=== PATIENT | male | born 1960 | race Caucasian/White ===

== ENCOUNTER 2019-04-16 20:24 | Emergency (ER) | payer MEDICARE, MEDICAID ==
[~2019-04-16] VITALS: Ht 180.3 cm; Wt 81.8 kg
[2019-04-16 20:39] VITALS: BP 127/87
== END 2019-04-16 21:33 | disposition home or self-care (01) ==
LOC: ER 20:24
DX: F15.10 Other stimulant abuse, uncomplicated (principal); E11.9 Type 2 diabetes mellitus without complications; Z87.820 Personal history of traumatic brain injury; Z87.891 Personal history of nicotine dependence; Z88.5 Allergy status to narcotic agent
CPT/HCPCS: 99281

== ENCOUNTER 2020-04-15 18:06 | Emergency (ER) | payer MEDICARE, MEDICAID ==
[~2020-04-15] VITALS: Ht 177.8 cm; Wt 75.0 kg
[2020-04-15 18:15] VITALS: BP 130/81
[2020-04-15] MEDS ORDERED: bacitracin 15gm ointment TP ONE (19:10)
== END 2020-04-15 19:45 | disposition home or self-care (01) ==
LOC: ER 18:06
DX: S61.213A Laceration without foreign body of left middle finger without damage to nail, initial encounter (principal); E11.9 Type 2 diabetes mellitus without complications; F32.9 Major depressive disorder, single episode, unspecified; F15.90 Other stimulant use, unspecified, uncomplicated; Z86.19 Personal history of other infectious and parasitic diseases; Z88.5 Allergy status to narcotic agent; W45.8XXA Other foreign body or object entering through skin, initial encounter; Y93.89 Activity, other specified; Y92.89 Other specified places as the place of occurrence of the external cause; Y99.8 Other external cause status
CPT/HCPCS: 12001; 99282

== ENCOUNTER 2022-11-05 22:35 | Emergency (ER) | payer MEDICARE, MEDICAID ==
[~2022-11-05] VITALS: Ht 175.3 cm; Wt 78.6 kg
[2022-11-05 23:21] LABS: MEAN PLATELET VOLUME 7.9 FL (7.4-10.4); MONOCYTES # (AUTO) 0.7 X10'3 (0-0.9); NEUTROPHILS # (AUTO) 7.9 X10'3 (1.8-7.7); RED CELL DISTRIBUTION WIDTH 14.7 % (11.5-14.5); WHITE BLOOD COUNT 10.7 X10'3 (4.5-11.0)
[2022-11-05 23:23] LABS: BASOPHILS % (AUTO) 0.3 % (0-1); EOSINOPHILS % (AUTO) 0.5 % (0-6); HEMATOCRIT 50.1 % (42.0-52.0); HEMOGLOBIN 17.4 g/dl (14.0-17.9); MEAN CORPUSCULAR HEMOGLOBIN 29.5 PG (27.0-31.0); MEAN CORPUSCULAR HGB CONC 34.7 g/dL (33.0-36.5); MEAN CORPUSCULAR VOLUME 85.1 FL (78-98); MONOCYTES % (AUTO) 6.5 % (2-12); NEUTROPHILS % (AUTO) 73.7 % (42-75); PLATELET COUNT 269 X10'3 (140-440); RED BLOOD COUNT 5.89 X10'6 (4.70-6.10)
[2022-11-05 23:40] LABS: ALANINE AMINOTRANSFERASE 21 U/L (12-78); ALBUMIN 4.2 G/DL (3.4-5.0); ALBUMIN/GLOBULIN RATIO 0.9 (1.1-1.5); ALKALINE PHOSPHATASE 128 IU/L (46-116); ANION GAP 11 (8-16); ASPARTATE AMINO TRANSFERASE 13 U/L (10-37); BILIRUBIN,TOTAL 0.5 MG/DL (0.1-1.0); BLOOD UREA NITROGEN 15 MG/DL (7-18); CALCIUM 10.4 MG/DL (8.5-10.1); CHLORIDE 100 MMOL/L (99-107); CREATININE 0.94 MG/DL (0.60-1.10); GLUCOSE 186 MG/DL (70-104); POTASSIUM 4.2 MMOL/L (3.5-5.1); SODIUM 139 MMOL/L (135-145); TOTAL CARBON DIOXIDE 27.8 MMOL/L (24-32); TOTAL PROTEIN 8.8 G/DL (6.4-8.2); eGFR 82 ML/MIN
[2022-11-05 23:44] LABS: LIPASE 62 U/L (73-393)
[2022-11-06] MEDS ORDERED: ondansetron/PF 4mg/2ml inj IV ONE (00:10)
[2022-11-06] MEDS ORDERED: normal saline 1000ML IV soln IVB ONE (00:10)
[2022-11-06] MEDS ORDERED: iohexol 300mg/ml 100ml inj. ONE (00:13)
[2022-11-06 03:24] VITALS: BP 135/82
[2022-11-06 09:45] LABS: C DIFF SPECIMEN=DIARRHEA? ACCEPTABLE; C DIFFICILE TOXINS A&B NEGATIVE (Neg)
== END 2022-11-06 03:26 | disposition home or self-care (01) ==
LOC: ER 22:38
DX: R19.7 Diarrhea, unspecified (principal); Z20.822 Contact with and (suspected) exposure to COVID-19; K59.00 Constipation, unspecified; R50.9 Fever, unspecified; E11.9 Type 2 diabetes mellitus without complications; G89.29 Other chronic pain; M54.50 Low back pain, unspecified; F17.200 Nicotine dependence, unspecified, uncomplicated; F15.20 Other stimulant dependence, uncomplicated; Z88.5 Allergy status to narcotic agent
CPT/HCPCS: 36415; 71045; 74177; 80053; 83605; 83690; 83880; 84145; 84484; 85025; 87040; 87324; 87449; 87502; 87503; 87635; 93005; 96361; 96374; 99285; C9803; J2405; J3490; J7030; Q9967

== ENCOUNTER 2023-02-13 20:57 | Emergency (ER) | payer MEDICARE, MEDICAID ==
[~2023-02-13] VITALS: Ht 177.8 cm; Wt 86.3 kg
[2023-02-13 21:21] LABS: BASOPHILS % (AUTO) 0.6 % (0-1); EOSINOPHILS # (AUTO) 0.2 X10'3 (0-0.9); EOSINOPHILS % (AUTO) 2.2 % (0-6); HEMATOCRIT 42.4 % (42.0-52.0); HEMOGLOBIN 14.2 g/dl (14.0-17.9); LYMPHOCYTES # (AUTO) 3.5 X10'3 (1.1-4.8); LYMPHOCYTES % (AUTO) 41.9 % (21-51); MEAN CORPUSCULAR HEMOGLOBIN 28.7 PG (27.0-31.0); MEAN CORPUSCULAR HGB CONC 33.6 g/dL (33.0-36.5); MEAN CORPUSCULAR VOLUME 85.4 FL (78-98); MEAN PLATELET VOLUME 7.8 FL (7.4-10.4); MONOCYTES # (AUTO) 0.5 X10'3 (0-0.9); NEUTROPHILS # (AUTO) 4.1 X10'3 (1.8-7.7); NEUTROPHILS % (AUTO) 49.3 % (42-75); PLATELET COUNT 239 X10'3 (140-440); RED BLOOD COUNT 4.96 X10'6 (4.70-6.10); RED CELL DISTRIBUTION WIDTH 14.3 % (11.5-14.5); WHITE BLOOD COUNT 8.4 X10'3 (4.5-11.0)
[2023-02-13 21:31] LABS: ALANINE AMINOTRANSFERASE 32 U/L (12-78); ALBUMIN 3.7 G/DL (3.4-5.0); ALKALINE PHOSPHATASE 97 IU/L (46-116); ANION GAP 12 (8-16); ASPARTATE AMINO TRANSFERASE 14 U/L (10-37); BILIRUBIN,TOTAL 0.3 MG/DL (0.1-1.0); BLOOD UREA NITROGEN 11 MG/DL (7-18); BUN/CREATININE RATIO 12.1 (10.0-20.0); CHLORIDE 101 MMOL/L (99-107); CREATININE 0.91 MG/DL (0.60-1.10); GLUCOSE 207 MG/DL (70-104); POTASSIUM 3.8 MMOL/L (3.5-5.1); SODIUM 135 MMOL/L (135-145); TOTAL CARBON DIOXIDE 21.9 MMOL/L (24-32); TOTAL PROTEIN 7.3 G/DL (6.4-8.2); eGFR 84 ML/MIN
[2023-02-14] MEDS ORDERED: furosemide 10 MG/1 ML 10ml inj IV ONE (00:05)
[2023-02-14 00:59] LABS: D-DIMER 0.48 MG/L FEU (0-0.50)
[2023-02-14 01:14] VITALS: BP 144/98
== END 2023-02-14 01:16 | disposition home or self-care (01) ==
LOC: ER 20:58
DX: R06.02 Shortness of breath (principal); R60.0 Localized edema; G89.29 Other chronic pain; M54.9 Dorsalgia, unspecified; Z88.5 Allergy status to narcotic agent
CPT/HCPCS: 36415; 71046; 80053; 83880; 84484; 85025; 85379; 93005; 96374; 99285; J1940

== ENCOUNTER 2025-04-11 20:16 | Emergency (ER) | payer BC, MEDICAID ==
[~2025-04-11] VITALS: Ht 175.3 cm; Wt 65.5 kg
--- NOTE | 2025-04-11 20:43 | Physician Documentation ---
History of Present Illness General Chief Complaint: See Chief Complaint Stated Complaint: METH OVERDOSE Time Seen by MD: 20:43 Primary Medical Doctor: Mireya History of Present Illness Initial Comments Patient is a 64-year-old male who presents to the emergency room with a complaint of agitation. Patient states that he smoked meth all day today and he states he can not calm down. He denies any chest pain. He does complain of some slight shortness of breath. The patient states he frequently smokes methamphetamine. He denies any significant cardiac history. The patient denies any other coingestion. Patient denies any recent fevers chills nausea or vomiting. Patient's symptoms were moderate and persistent. 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 GENERAL: Alert, no apparent distress. HEENT: Normocephalic, atraumatic, PERRL, EOMI, dry mucosa, no erythema RESPIRATORY: Lungs clear, normal breath sounds, no respiratory distress. CHEST: No accessory muscle use, no retractions CV: Tachycardic rate, rhythm, no edema, no murmur, No: JVD GI: Soft, non-tender, bowels sounds present, no rebound, guarding, or rigidity BACK: No CVA tenderness, or swelling MUSCULOSKELETAL: No deformities, no edema SKIN: Warm and dry, no rash NEURO: Oriented x4, No motor or sensory deficit PSYCH: Normal mood and affect, no agitation Progress Results/Orders Results/Orders Orders - OHKELLY NAGY MD Chest,Single View (04/11/25 20:56) Monitor (04/11/25 20:49) Saline Lock (04/11/25 20:49) Oxygen (04/11/25 20:49) Hs Troponin I W Calculations (04/11/25 22:49) Hs Troponin I W Calculations (04/11/25 23:49) Completed Orders - KELLY KIM MD Chest,Single View (04/11/25 20:56) Cbc/Diff (04/11/25 20:49) BMP (04/11/25 20:49) PBNP (04/11/25 20:49) Electrocardiogram (04/11/25 20:49) Hs Troponin I W Calculations (04/11/25 20:49) Lorazepam Tablet (Ativan Tablet) (04/11/25 20:50) Clonidine Tablet (Catapres Tablet) (04/11/25 20:50) Medications Received in ER Medications (Trade) Dose Ordered Sig/Anupama Route PRN Reason Start Time Stop Time Status Last Admin Dose Admin (Ativan tablet) 1 mg ONCE ONCE PO 04/11/25 20:50 04/11/25 20:51 DC 04/11/25 21:51 1 MG (Catapres tablet) 0.1 mg ONCE ONCE PO 04/11/25 20:50 04/11/25 20:51 DC 04/11/25 21:51 0.1 MG Vital Signs 04/11/25 04/11/25 04/11/25 20:41 21:19 21:20 Temp 97.9 97.9 Pulse 108 99 Resp 20 16 12 B/P (MAP) 144/100 131/36 (67) Pulse Ox 95 94 O2 Flow Rate 0 0 Laboratory Tests Test 04/11/25 21:03 White Blood Count 8.0 Red Blood Count 4.66 L Hemoglobin 13.6 L Hematocrit 39.6 L Mean Corpuscular Volume 84.9 Mean Corpuscular Hemoglobin 29.3 Mean Corpuscular Hemoglobin Concent 34.4 Red Cell Distribution Width 13.5 Platelet Count 218 Mean Platelet Volume 7.7 Neutrophils (%) (Auto) 63.7 Lymphocytes (%) (Auto) 28.1 Monocytes (%) (Auto) 4.5 Eosinophils (%) (Auto) 2.6 Basophils (%) (Auto) 1.1 H Neutrophils # (Auto) 5.1 Lymphocytes # (Auto) 2.3 Monocytes # (Auto) 0.4 Eosinophils # (Auto) 0.2 Basophils # (Auto) 0.1 CBC Comment Sodium Level 137 Potassium Level 3.7 Chloride Level 104 Carbon Dioxide Level 21.1 L Anion Gap 12 Blood Urea Nitrogen 17 Creatinine 0.97 Estimated GFR/1.73 m2 78 BUN/Creatinine Ratio 17.5 Glucose Level 191 H Calcium Level 8.7 Troponin I High Sensitivity 8 Pro-B-Type Natriuretic Peptide 351 H Albumin 3.5 Chemistry Comments EKG/XRAY/CT/US/VASC/MRI Chest X-Ray : Additional Comments Patient: JOSEPH CARABALLO Medical Record: [id number] [facility] : 1960, Age: 64 Sex: Male Location: ER Patient Status: [facility] ER Service Date/Time: 04/11/252055 Ordering Physician: KELLY KIM MD Exam: CHEST,SINGLE VIEW CHEST RADIOGRAPH Indication: CP Technique: 1 view Comparison: 02/13/2023 FINDINGS: Lines and Tubes: None Lungs/Pleura: No focal consolidation, pleural effusion or pneumothorax. Mild scarring/atelectasis in the right lung base. Cardiomediastinum: Unremarkable. Other: No acute osseous abnormality. IMPRESSION: 1. No acute cardiopulmonary abnormality. Electronically Signed by:KATHY CASTILLO MD Date & Time: 04/11/252105 Dictated by: KATHY CASTILLO MD Dictation date and time: 04/11/252105 Primary Care Provider: NO PRIMARY CARE PROVIDER cc: KELLY KIM MD ~ Departure Disposition: 01 HOME / SELF CARE / HOMELESS Impression: Primary Impression: Methamphetamine abuse Discharge Instructions: Methamphetamines Use Disorder Referrals: NO PRIMARY CARE PROVIDER (PCP) KELLY KIM MD Apr 11, 2025 20:43
--- NOTE | 2025-04-11 20:51 | ELECTROCARDIOGRAPH REPORT ---
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
--- NOTE | 2025-04-11 21:08 | RADIOLOGY REPORT ---
CHEST RADIOGRAPH Indication: CP Technique: 1 view Comparison: 02/13/2023 FINDINGS: Lines and Tubes: None Lungs/Pleura: No focal consolidation, pleural effusion or pneumothorax. Mild scarring/atelectasis in the right lung base. Cardiomediastinum: Unremarkable. Other: No acute osseous abnormality. IMPRESSION: 1. No acute cardiopulmonary abnormality.
[2025-04-11 21:19] VITALS: BP 131/36; O2SAT 94
[2025-04-11 21:20] LABS: MEAN PLATELET VOLUME 7.7 FL (7.4-10.4); RED CELL DISTRIBUTION WIDTH 13.5 % (11.5-14.5)
[2025-04-11 21:44] LABS: CREATININE 0.97 MG/DL (0.60-1.10); PRO BRAIN NATRIURETIC PEPTIDE 351 PG/ML (0-125); TOTAL CARBON DIOXIDE 21.1 MMOL/L (24-32); eCRCL 71 ML/MIN; eGFR 78 ML/MIN
[2025-04-11 22:33] VITALS: PULSE 98; RESP 15; TEMP 97.9
== END 2025-04-11 22:35 | disposition home or self-care (01) ==
LOC: ER 20:17
DX: F15.10 Other stimulant abuse, uncomplicated (principal); R06.02 Shortness of breath; R45.1 Restlessness and agitation; E11.9 Type 2 diabetes mellitus without complications; F17.200 Nicotine dependence, unspecified, uncomplicated; Z88.5 Allergy status to narcotic agent
CPT/HCPCS: 36415; 71045; 80048; 83880; 84484; 85025; 93005; 99285

== ENCOUNTER 2025-04-16 17:36 | Emergency (ER) | payer BC, MEDICAID ==
[~2025-04-16] VITALS: Ht 175.3 cm; Wt 86.9 kg
--- NOTE | 2025-04-16 17:56 | ELECTROCARDIOGRAPH REPORT ---
[facility] Test Date: 2025-04-16 Test Time: 17:54:30 Pat Name: JOSEPH CARABALLO Department: [facility]- Patient ID: [id number] Room: Gender: M Offal Baler: : 1960 Requested By: NEETU COVARRUBIAS Order Number: [id number] Reading MD: Measurements Intervals [place] Rate: 112 P: 62 TX: 146 QRS: 102 QRSD: 100 T: 20 QT: 341 QTc: 466 Interpretive Statements Sinus tachycardia Left posterior fascicular block Abnormal R-wave progression, late transition Borderline T abnormalities, anterior leads Please click the below link to view image of tracing.
[2025-04-16 18:28] LABS: MEAN PLATELET VOLUME 8.5 FL (7.4-10.4); RED CELL DISTRIBUTION WIDTH 13.4 % (11.5-14.5)
--- NOTE | 2025-04-16 18:28 | RADIOLOGY REPORT ---
CHEST RADIOGRAPH Indication: CP Technique: DI CHEST,SINGLE VIEW Comparison: None FINDINGS: The cardiac silhouette is unremarkable. The lungs demonstrate right basilar airspace opacities. The p ulmonary vasculature is unremarkable. Small right pleural effusion. There is no pneumothorax. IMPRESSION: As above
[2025-04-16 18:55] LABS: CREATININE 1.00 MG/DL (0.60-1.10); PRO BRAIN NATRIURETIC PEPTIDE 69 PG/ML (0-125); TOTAL CARBON DIOXIDE 23.1 MMOL/L (24-32); eCRCL 75 ML/MIN; eGFR 75 ML/MIN
--- NOTE | 2025-04-16 20:28 | Physician Documentation ---
History of Present Illness ~ Chief Complaint: Shortness of Breath Stated Complaint: SOB Time Seen by MD: 19:55 Primary Medical Doctor: Mireya Source: patient Mode of Arrival: POV Exam Limitations: no limitations HPI Patient with past medical history is significant for COPD, working diagnosis of pulmonary hypertension being referred to [facility], methamphetamine abuse, diabetes mellitus, HIV and hepatitis-B presented se condary to shortness for breath and chest pain for the past two days. He reports shortness for breath is worse when lying flat, any exertion. Complains of PND and intermittent shortness for breath at rest. Chest pain located in the left chest nonradiating with no associated nausea, vomiting, dizziness, lightheadedness. Complains that chest feels like somebody is pushing on him. Denies previous history of PR for known history of CHF. 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 Otherwise, no dizziness, lightheadedness or syncope. Was asked, but otherwise denies review of systems. Physical Exam Vital Signs: RN Vital Signs have been reviewed: Yes, Temperature: 97.1, Source: Temporal, Heart Rate: 107, Respiratory Rate: 16, BP: 157/91, Pulse Oximetry: 95, Weight: 86.900 Oxygen Flow Rate: 0 Pulse Oximetry Reflects: adequate oxygenation Physical Exam General: Awake, alert, oriented. Speaking in full sentences. Edentulous Neck: Supple. Normal range of motion. No JVD Respiratory: Lungs are clear to auscultation bilaterally. No respiratory distress. Chest: Normal shape and size. No accessory muscle use. Cardiovascular: Regular rhythm. Tachycardic. S1-S2. No murmur, gallop, rub. Gastrointestinal: Abdomen is soft. Nontender to palpation. Bowel sounds present. Extremities: No lower extremity edema, cyanosis or clubbing. Neurologic: Alert and oriented x4. Nonfocal Psychiatric: Normal mood and affect. Skin: Normal color. Warm and dry. Progress Progress Note Caregiver later came in and states patient has known history of right-sided hea rt failure and being evaluated for PAH. She is aware that this is secondary to methamphetamine. Results/Orders Results/Orders Orders - SALINA WRIGHT DENTURES LAB TECHNICIAN Cta Chest Pe (04/16/25 20:14) Completed Orders - SALINA WRIGHT DENTURES LAB TECHNICIAN Cta Chest Pe (04/16/25 20:14) Iohexol 350mg/Ml 100ml (Omnipaque 350mg/ (04/16/25 20:23) Vital Signs 04/16/25 04/16/25 04/16/25 04/16/25 17:45 19:51 21:27 21:59 Temp 97.1 98.1 Pulse 107 96 89 Resp 18 16 16 16 B/P (MAP) 157/91 168/102 (124) 134/80 Pulse Ox 95 97 99 O2 Flow Rate 0 Laboratory Tests Test 04/16/25 18:01 04/16/25 20:35 White Blood Count 8.3 Red Blood Count 4.84 Hemoglobin 14.2 Hematocrit 41.5 L Mean Corpuscular Volume 85.9 Mean Corpuscular Hemoglobin 29.4 Mean Corpuscular Hemoglobin Concent 34.2 Red Cell Distribution Width 13.4 Platelet Count 227 Mean Platelet Volume 8.5 Neutrophils (%) (Auto) 53.3 Lymphocytes (%) (Auto) 36.9 Monocytes (%) (Auto) 6.1 Eosinophils (%) (Auto) 2.2 Basophils (%) (Auto) 1.5 H Neutrophils # (Auto) 4.4 Lymphocytes # (Auto) 3.0 Monocytes # (Auto) 0.5 Eosinophils # (Auto) 0.2 Basophils # (Auto) 0.1 CBC Comment Sodium Level 139 Potassium Level 4.0 Chloride Level 106 Carbon Dioxide Level 23.1 L Anion Gap 10 Blood Urea Nitrogen 15 Creatinine 1.00 Estimated GFR/1.73 m2 75 BUN/Creatinine Ratio 15.0 Glucose Level 191 H Calcium Level 9.2 Troponin I High Sensitivity 6 7 Pro-B-Type Natriuretic Peptide 69 Albumin 3.6 Chemistry Comments Troponin I High Sens Percent Delta 16 Troponin I Hi Sens Absolute Change 1 EKG/XRAY/CT/US/VASC/MRI CT : Interpreted By: radiologist CT: chest With Contrast?: Yes Impression [address], [facility] [id number] CAT SCAN Patient: JOSEPH CARABALLO Medical Record: [id number] [facility] 1960, Age: 64 Sex: Male Location: ER Patient Status: [facility] ER Service Date/Time: 04/16/252013 Ordering Physician: SALINA WRIGHT DENTURES LAB TECHNICIAN Exam: CTA CHEST PE EXAM: CT CTA CHEST PE W/ IV CONTRAST HISTORY: SOB/CP/tachycardia r/o PE TECHNIQUE: CT angiogram was performed. CT scans at this facility use dose modulation, iterative reconstruction, and/or weight based dosing when appropriate to reduce radiation dose to as low as reasonably achievable. Coronal and sagittal reformations and maximum intensity projection images were created from the transaxial source data by the cytopathology technologist and workstation, as well as 3-D volume rendered images with MIPs. COMPARISON: None FINDINGS: [LOWER NECK]: Unremarkable [LYMPH NODES/MEDIASTINUM]: No abnormal lymph nodes by CT size criteria [CARDIOVASCULAR]: Normal cardiac size. No pericardial effusion. No aneurysmal dilatation of the great vessels. Coronary artery calcifications. [PULMONARY ARTERIES]: No pulmonary arterial filling defect. Normal caliber of the main pulmonary artery. No evidence of elevated right heart pressures. [UPPER ABDOMEN]: Cholelithiasis. Elevation of the right hemidiaphragm. [MUSCULOSKELETAL]: No acute fracture or aggressive focal osseous lesion. Multilevel degenerative change of the visualized spine. Prior right posterior rib fractures. [CHEST WALL]: Unremarkable. [LUNG PARENCHYMA/PLEURAL SPACE]: Decreased lung volumes. Scattered pneumatoceles. Trace bilateral pleural effusions. Atelectasis in bilateral lung bases No pleural effusion or pneumothorax. 6 mm oval-shaped pulmonary nodule in the periphery of the right upper lobe. IMPRESSION: 1. No CTA evidence of pulmonary embolism. 2. Trace bilateral pleural effusions. 3. 6 mm indeterminate oval-shaped pulmonary nodule of the periphery of the right upper lobe. Consider follow-up CT of the chest in 12 months to assess for stability. Electronically Signed by:MONICA BAIN MD Date & Time: 04/16/252049 Dictated by: MONICA BAIN MD Dictation date and time: 04/16/252049 Primary Care Provider: MARCY PRIMARY CARE PROVIDER cc: SALINA WRIGHT DENTURES LAB TECHNICIAN ~ Heart Score: Heart Score Response (Comments) Value History Moderate Suspicious 1 EKG Repolarization Disturb 1 Age 45-64 1 Risk Factors 1 or 2 risk factors 1 Troponin Normal limit 0 Total 4 Medical Decision Making Findings Patient with known past medical history is significant for COPD, methamphetamine abuse, HIV, hepatitis-B. Known history of right-sided heart failure being evaluated for pulmonary arterial hypertension. Has plans for right-sided heart catheterization. Presents with increased shortness for breath. He is tachycardic and he Segundo with complaints of chest pain and shortness for breath. Concern for pulmonary embolism. PE was ruled out by CTA. Did show small bilateral pleural effusions which may be contributing to his shortness for breath. His heart score is four. He denies having a cardiac workup in the past. He states he has good follow up and wants to go home. Risks reviewed with patient as well as the caregiver. Given troponins negative, nonspecific ST-T changes on EKG and CTA negative for acute PE he will be discharged home with close follow up with his primary care/pulmonology. Given his shortness for breath and pleural effusions he was given a short course of Lasix which he will take at home. Laboratory evaluation: WBCs are not elevated consistent with pneumonia. Kidney function is normal. Electrolytes are normal. High sensitivity troponins normal. NT proBNP is not elevated. Lower extremity edema on exam. Do not suspect over heart failure. Shared decision-making was utilized and he will be discharged home with outpatient follow up. The case was discussed with the attending physician, Otis. The plan of care, diagnostic evaluation and medical decision making were discussed. The attending physician was available for consultation, where the diagnostic findings as well as the eventual disposition. Heart Score: 4 Differential Dx:Considerations: Include: anxiety, asthma, bronchitis, CHF, COPD, dysrhythmia, myocardial infarction, panic attack, pneumonia, pneumonitis, pneumothorax, pulmonary embolism, respiratory distress, respiratory failure Departure Time of Disposition: 21:37 Disposition: HOME / SELF CARE / HOMELESS Impression: Primary Impression: Shortness of breath Additional Impressions: Chest pain Qualified Codes: R07.9 - Chest pain, unspecified Pleural effusion Condition: Stable Discharge Instructions: Shortness of Breath, Adult, [id number] Additional Instructions: Please follow up with your primary care provider/project safety manager for further evaluation and management. Your CT scan did not show a acute blood clot. It did show a small amount of fluid on your lungs. Take Lasix 20 mg daily and potassium 10 mEq daily for the next five days to help with your shortness for breath. Return for new or worsening symptoms. Follow up with your primary care provider within the next week. Referrals: NO PRIMARY CARE PROVIDER (PCP) Prescriptions Potassium Chloride* (Potassium Chloride*) 10 Meq Capsule.sa 1 CAP PO DAILY for 5 Days, #5 CAP Prov: SALINA WRIGHT DENTURES LAB TECHNICIAN 04/16/25 Furosemide* (Lasix*) 20 Mg Tablet 1 TAB PO DAILY for 5 Days, #5 TAB Prov: SALINA WRIGHT DENTURES LAB TECHNICIAN 04/16/25 Education Educated: Patient Educated regarding: diagnosis, treatment, prognosis, need for follow up Signature Scribe Signature: No scribe Attestation: The note accurately reflects work and decisions made by me.Salina Wright - KEV 04/16/25 22:11 SALINA WRIGHT NP Apr 16, 2025 20:28
--- NOTE | 2025-04-16 20:52 | RADIOLOGY REPORT ---
EXAM: CT CTA CHEST PE W/ IV CONTRAST HISTORY: SOB/CP/tachycardia r/o PE TECHNIQUE: CT angiogram was performed. CT scans at this facility use dose modulation, iterative recon struction, and/or weight based dosing when appropriate to reduce radiation dose to as low as reasonab ly achievable. Coronal and sagittal reformations and maximum intensity projection images were created from the transaxial source data by the cytotechnologist/histotechnologist and workstation, as well as 3-D volume render ed images with MIPs. COMPARISON: None FINDINGS: [LOWER NECK]: Unremarkable [LYMPH NODES/MEDIASTINUM]: No abnormal lymph nodes by CT size criteria [CARDIOVASCULAR]: Normal cardiac size. No pericardial effusion. No aneurysmal dilatation of the great vessels. Coronary artery calcifications. [PULMONARY ARTERIES]: No pulmonary arterial filling defect. Normal caliber of the main pulmonary sylvia ry. No evidence of elevated right heart pressures. [UPPER ABDOMEN]: Cholelithiasis. Elevation of the right hemidiaphragm. [MUSCULOSKELETAL]: No acute fracture or aggressive focal osseous lesion. Multilevel degenerative contreras ge of the visualized spine. Prior right posterior rib fractures. [CHEST WALL]: Unremarkable. [LUNG PARENCHYMA/PLEURAL SPACE]: Decreased lung volumes. Scattered pneumatoceles. Trace bilateral pl eural effusions. Atelectasis in bilateral lung bases No pleural effusion or pneumothorax. 6 mm oval-s haped pulmonary nodule in the periphery of the right upper lobe. IMPRESSION: 1. No CTA evidence of pulmonary embolism. 2. Trace bilateral pleural effusions. 3. 6 mm indeterminate oval-shaped pulmonary nodule of the periphery of the right upper lobe. Consider follow-up CT of the chest in 12 months to assess for stability.
[2025-04-16] MEDS ORDERED: POTA10CA95 PO (21:40)
[2025-04-16] MEDS ORDERED: FURO-150 PO (21:40)
[2025-04-16 21:59] VITALS: BP 134/80; PULSE 89; RESP 16; TEMP 98.1; O2SAT 99
== END 2025-04-16 22:01 | disposition home or self-care (01) ==
LOC: ER 17:37
DX: J90 Pleural effusion, not elsewhere classified (principal); R06.02 Shortness of breath; E11.9 Type 2 diabetes mellitus without complications; J44.9 Chronic obstructive pulmonary disease, unspecified; F17.200 Nicotine dependence, unspecified, uncomplicated; F15.90 Other stimulant use, unspecified, uncomplicated; Z88.5 Allergy status to narcotic agent; Z88.8 Allergy status to other drugs, medicaments and biological substances
CPT/HCPCS: 36415; 71045; 71275; 80048; 83880; 84484; 85025; 93005; 99285; Q9967; A4615; A6258; A6449